=== PATIENT | male | born 1950 | race Caucasian/White ===

== ENCOUNTER 2017-01-01 21:41 | Inpatient (IN) ==
--- NOTE | 2017-01-01 22:15 | Emergency Department Note ---
Lois Luque Hilary, am scribing for, and in the presence of, Yoko Valdez DO 22: 02. IJosé Miguel Debra, DO, personally performed the services described in this documentation, ascribed by Brittany Abreu in my presence, and it is both accurate and complete 215 . Arrival - Arrival Chief Complaint: Shortness of Breath Stated Complaint: TRANSFER FROM [facility] FOR FLUID OVRLOAD/SOB Limitations: No Limitations Source: Patient, RN Notes Reviewed - History of Present Illness HPI Narrative: Pt is a 66 y/o white male brought into the ED via EMS as a transfer from [place] for c/o fluid overload and SOB. Pt denies any pain but confirms SOB. No other complaints or problems stated in the ED. Pt has a PMHx of Pancreatic CA. Onset (ago): hour(s) Consistency: constant Severity: moderate Severity scale (1-10): 4 Allergies/Adverse Reactions: Allergies Allergy/AdvReac Type Severity Reaction Status Date / Time No Known Allergies Allergy Verified 09/23/16 12:54 Home Medications: Home Medications Medication Instructions Recorded Confirmed Type Hydrocodone/Acetaminophen 2 each PO TID 09/23/16 09/23/16 History [Hydrocodon-Acetaminophn 10-325] Iron 25 mg PO DAILY 09/23/16 09/23/16 History Levothyroxine Tab [Synthroid Tab] 25 mcg PO DAILY@0700 09/23/16 09/23/16 History Omeprazole 20 mg PO DAILY 09/23/16 09/23/16 History Ondansetron Odt Tab [Zofran Odt] 4 mg PO Q4H PRN 09/23/16 09/23/16 History Pregabalin [Lyrica] 75 mg PO TID W/MEALS 09/23/16 09/23/16 History Sertraline HCl 100 mg PO DAILY 09/23/16 09/23/16 History Sulfameth/Trimeth 800-160 Tab 1 tablet PO BID 09/23/16 09/23/16 History [Bactrim DS Tab] diphenhydrAMINE HCl 25 mg PO BEDTIME PRN 09/23/16 09/23/16 History [diphenhydrAMINE Tab] Review of System - Review of System 12 point system: reviewed and no additional remarkable complaints except as stated - Review of System Constitutional: Present: other (fluid overload). Absent: fever Respiratory: Present: respiratory distress (SOB) Medical,Surgical,& Family Hx - Medical History Cardio: History of: CHF, Hypertension, Cardiovascular Problems (atrial fibrillation) Psychological: History of: Depression, Psychiatric Problems (PTSD) HEENT: History of: Eye Problem Endocrine: History of: Thyroid Disorder (takes sythroid) Respiratory: History of: Bronchitis, Intubation, Obstructive Sleep Apnea, Pneumonia Renal: History of: Renal Problems (urinary hetiancy) Genitourinary: History of: Prostate Problems Gastrointestinal: History of: GERD Other: History of: Cancer - Surgical History HEENT Surgeries: Surgical HX of: Eye Surgery Abdominal Surgeries: Surgical HX of: Abdominal Surgery (Spleen, Pancrease), Cholecystectomy, Colonoscopy, EGD - Family History Family History: Reports;: Family Cancer, Family Diabetes - Social History Smoking Status: Never smoker Exam Vital Signs: Vital Signs Temperature 96.5 F L 01/02/17 00:45 Pulse Rate 45 L 01/02/17 01:45 Respiratory Rate 18 01/02/17 01:30 Blood Pressure 54/33 01/02/17 01:30 O2 Sat by Pulse Oximetry 100 01/02/17 00:17 - General General appearance: alert, in no apparent distress - Head Head exam: Present: atraumatic, normocephalic - Eye Eye exam: Present: normal appearance, PERRL, EOMI - ENT ENT exam: Present: mucous membranes moist, TM's normal bilaterally. Absent: mucous membranes dry - Neck Neck exam: Present: full ROM, trachea midline. Absent: tenderness - Chest Chest inspection: Present: symmetric chest wall rise. Absent: tenderness - Respiratory Respiratory exam: Present: normal lung sounds bilaterally. Absent: respiratory distress - Cardiovascular Cardiovascular exam: Present: regular rate, normal rhythm, normal heart sounds. Absent: murmur, rubs, gallop - Abdominal Exam Abdominal exam: Present: soft, normal bowel sounds. Absent: distention, tenderness - Extremities Exam Extremities exam: Present: full ROM, pedal edema, other (bilateral edema LE and UE). Absent: tenderness - Back Exam Back exam: Present: full ROM. Absent: tenderness - Neurological Exam Neurological exam: Present: alert, oriented X3, CN II-XII intact. Absent: motor sensory deficit - Psychiatric Psychiatric exam: Present: normal affect, normal mood - Skin Skin exam: Present: warm, dry, intact, normal color. Absent: rash Results - Labs Lab Results: I have reviewed the patients labs Labs: Laboratory Tests 01/01/17 01/01/17 22:25 23:00 B-Natriuretic Peptide 64 Urine pH 5.0 Ur Specific [place] 1.012 Urine Urobilinogen < 2.0 H Urine RBC 1 Urine WBC 2 Hyaline Casts 4 Critical Care Time Critical Care Time: Yes Total Critical Care Time: 30 Disposition Disposition: Still a Patient Condition: Critical
[2017-01-01] MEDS ORDERED: DOPamine 800 MG/250 ML PREMIX IV ONE (22:27)
[2017-01-01] MEDS ORDERED: SODIUM CHLORIDE 0.9% 1,000 ML IV STA (22:28)
[2017-01-01] MEDS ORDERED: MEROPENEM 1,000 MG in SODIUM CHLORIDE 0.9% 100 ML IV STA (22:28)
[2017-01-01] MEDS ORDERED: DOPamine 800 MG/250 ML PREMIX IV SCH (22:30)
[2017-01-01] MEDS ORDERED: chlorproMAZINE INJ 50 MG in SODIUM CHLORIDE 0.9% 100 ML IV PRN (23:12)
[2017-01-01] MEDS ORDERED: diphenhydrAMINE CAP 25 MG CAPSULE PO PRN (23:12)
[2017-01-01] MEDS ORDERED: ONDANSETRON 4 MG/2 ML VIAL IV PRN (23:12)
[2017-01-01] MEDS ORDERED: chlorproMAZINE INJ 25 MG in SODIUM CHLORIDE 0.9% 100 ML IV PRN (23:12)
[2017-01-01] MEDS ORDERED: BENZTROPINE 2 MG/2 ML AMP IV PRN (23:12)
[2017-01-01] MEDS ORDERED: MYLANTA/LIDO VISC 2:1 300 ML BOTTLE SWISH/SWAL PRN (23:12)
[2017-01-01] MEDS ORDERED: PROMETHAZINE INJ 25 MG in SODIUM CHLORIDE 0.9% 50 ML IV PRN (23:12)
[2017-01-01] MEDS ORDERED: SODIUM CHLORIDE 0.9% 1,000 ML IV SCH (23:30)
[2017-01-01 23:40] LABS: Apearance,Urine Slightly Hazy (Clear); Bacteria,Urine Occasional /HPF (Few); Bilirubin,Urine Negative (Negative); Blood, Urine Negative (Negative); Glucose,Urine (UA) Negative (Negative); Hyaline Casts,Urine 4 /LPF (0-3); Ketones,Urine Negative (Negative); Mucus,Urine Occasional /LPF (Occasional); Nitrite,Urine Negative (Negative); Protein,Urine Negative; RBC,Urine 1 /HPF (0-4); Squamous Epithelial Cell,Urine Occasional /HPF (0-10); Urine Color Yellow (Yellow); Urine Specific Gravity 1.012 (1.001-1.035); Urine Urobilinogen < 2.0 EU/DL (0.2-1.0); WBC,Urine 2 /HPF (0-6)
[2017-01-01] MEDS ORDERED: VECURONIUM 10 MG VIAL IV ONE ×2 (23:40→23:42)
[2017-01-01] MEDS ORDERED: SUCCINYLCHOLINE 200 MG/10 ML VIAL ONE (23:42)
[2017-01-01] MEDS ORDERED: ETOMIDATE 20 MG/10 ML VIAL IV ONE (23:42)
[2017-01-02] MEDS ORDERED: NOREPINEPHRINE 4 MG/4 ML VIAL IV ONE (00:43)
[2017-01-02] MEDS ORDERED: HYDROCORTISONE 100 MG VIAL IV ONE (00:46)
[2017-01-02 00:50] LABS: ABG Base Excess -8.5 MMOL/L (-2.5-2.5); ABG HCO3 17.4 MMOL/L (20-26); ABG Oxygen Saturation 88.9 % (95-100); ABG PO2 70.5 MM HG (80-95); ABG TCO2 18.7 MMOL/L (23-27); Allen Test Positive; Pt O2 Delivery Device Ventilator
[2017-01-02 00:51] LABS: ABG PH 7.189 (7.35-7.45)
[2017-01-02] MEDS ORDERED: MEROPENEM 1,000 MG in SODIUM CHLORIDE 0.9% 100 ML IV SCH (01:00)
[2017-01-02] MEDS ORDERED: NOREPINEPHRINE 8 MG in SODIUM CHLORIDE 0.9% 242 ML IV SCH (01:00)
[2017-01-02] MEDS ORDERED: SODIUM BICARBONATE 50 MEQ/50 ML SYRINGE IV ONE (01:14)
[2017-01-02 01:53] VITALS: BP 54/33
--- NOTE | 2017-01-02 09:07 | XRay Report ---
Portable chest Date: 01/01/2017 Clinical history: Status post intubation Comparison: 01/01/2017 Technique: Portable AP sitting chest Findings: The heart is enlarged with progressive parenchymal findings and larger pleural effusions. Stable left subclavian venous access catheter. The endotracheal tube is in satisfactory position. Degenerative changes with postoperative findings in the left shoulder. Impression: The endotracheal tube is in satisfactory position. Progressive moderate CHF/bilateral pneumonia. Progressive atelectasis with enlarging small to moderate pleural effusions. PROCEDURE INTERPRETED AT [facility] DEPARTMENT OF RADIOLOGY Final Report Signed by: Dr. Deborah Whitney
--- NOTE | 2017-01-02 10:46 | Oncology History&Physical ---
History of Present Illness Chief complaint: Shortness of breath History of present illness: Mr. Benito is a 66 year old male With a past medical history of pancreatic cancer. He is followed by Dr. Latrell Ngo. History was obtained through telephone conversations with the emergency room physician. This patient was transferred from an outside facility with shortness of breath. There appeared to be bilateral pneumonia. The patient's cardiac BNP was within normal limits arguing against congestive heart failure. He was intubated in the ER here at [facility]. Pertinent positives include severe hypotension unresponsive to 2 vasopressors and decreased mental status. The patient had evidence of metabolic acidosis with severely elevated lactic acid based on review of outside hospital records. The patient was admitted to the ICU but did not survive more than 2 hours. I was in contact with the ICU nurses during the night. No other physical examination details are available as the patient before hospital rounds were made. The patient's was informed of the gravity of the situation by nursing staff and a DO NOT RESUSCITATE order was instituted. See chart for further orders and documentation. Home Medications Medication Instructions Recorded Confirmed Type Hydrocodone/Acetaminophen 2 each PO TID 09/23/16 09/23/16 History [Hydrocodon-Acetaminophn 10-325] Iron 25 mg PO DAILY 09/23/16 09/23/16 History Levothyroxine Tab [Synthroid Tab] 25 mcg PO DAILY@0700 09/23/16 09/23/16 History Omeprazole 20 mg PO DAILY 09/23/16 09/23/16 History Ondansetron Odt Tab [Zofran Odt] 4 mg PO Q4H PRN 09/23/16 09/23/16 History Pregabalin [Lyrica] 75 mg PO TID W/MEALS 09/23/16 09/23/16 History Sertraline HCl 100 mg PO DAILY 09/23/16 09/23/16 History Sulfameth/Trimeth 800-160 Tab 1 tablet PO BID 09/23/16 09/23/16 History [Bactrim DS Tab] diphenhydrAMINE HCl 25 mg PO BEDTIME PRN 09/23/16 09/23/16 History [diphenhydrAMINE Tab] Allergies Allergy/AdvReac Type Severity Reaction Status Date / Time No Known Allergies Allergy Verified 09/23/16 12:54 Medical,Surgical,& Family Hx - Medical History Cardio: History of: CHF, Hypertension, Cardiovascular Problems (atrial fibrillation) Psychological: History of: Depression, Psychiatric Problems (PTSD) HEENT: History of: Eye Problem Endocrine: History of: Thyroid Disorder (takes sythroid) Respiratory: History of: Bronchitis, Intubation, Obstructive Sleep Apnea, Pneumonia Renal: History of: Renal Problems (urinary hetiancy) Genitourinary: History of: Prostate Problems Gastrointestinal: History of: GERD Other: History of: Cancer - Surgical History HEENT Surgeries: Surgical HX of: Eye Surgery Abdominal Surgeries: Surgical HX of: Abdominal Surgery (Spleen, Pancrease), Cholecystectomy, Colonoscopy, EGD - Family History Family History: Reports;: Family Cancer, Family Diabetes - Social History Smoking Status: Never smoker Frequency of Alcohol Use: None Type of Drug Use: None Exam - Constitutional Vitals: Period Temp Pulse Resp BP Sys/Narayanan Pulse Ox Last 24 Hr 96.5 F-98.1 F 45-129 12-32 49-68/22-33 97-100
--- NOTE | 2017-01-03 13:21 | Physician Query Form ---
CLICK EDIT DOCUMENT TO SELECT QUERY ANSWER --> OK --> SIGN Catina Soto RN, CCDS Certified Clinical Hot End Operator W) [phone] (f) [phone] [email or web address]: Make your selection(s) from the choices in EACH section by typing an "x" and enter comments in the comment section. Please use your independent medical judgment in providing your response. This request does not imply that any particular answer is desired or expected. CLINICAL INDICATORS: (Providers should not edit this section) The medical record indicates that the patient was admitted with Pneumonia, Lactic Acid 11.5#, BP 61/31 in the ER (severe hypotension unresponsive to 2 vasopressors), Respirations of 32 (placed on the Vent), ABG's pH 7.189#, pC02 52.0#, p02 70.5 # AND the patient was placed on Norepinephrine / Dopamine. Please clarify which, if any, of the following is the etiology of the above symptoms and treatment rendered: ( ) Sepsis due to a localized infection, please specify infection: ( ) Severe Sepsis (sepsis with acute organ failure) - Please specify type acute organ failure: ( x) Septic Shock (severe sepsis with hypotension) ( ) SIRS of noninfectious origin ( ) Sepsis due to a device, implant or graft, please specify: ( ) Localized infection only, without systemic illness, please specify infection : ( ) Bacteremia (abnormal lab finding only, does not indicate systemic illness) ( ) Other condition, please specify: ( ) Clinically unable to determine Criteria for Sepsis (SIRS due to an infection) should be based on 2 or more of the following being present: Temperature > 101F or < 96.8F WBC > 12,000 or < 4,000, or > 10% bands Tachycardia HR > 90 beats/minute Tachypnea RR > 20 breaths/minute or PaCO2 > 32mmHg Lactate level > 2.0 mmol/L (>4 is equivalent to severe sepsis) Altered Mental Status Mottling of skin or prolonged capillary refill Non-diabetic hyperglycemia (blood sugar >120 mg/dl) Other evidence of acute organ failure associated with sepsis ( severe sepsis) COMMENTS: PLEASE ALSO DOCUMENT RESPONSE IN PROGRESS NOTES AND/OR DISCHARGE SUMMARY Use of terms such as suspected, likely, or probable (associated with a specific diagnosis that is being evaluated, monitored, or treated as if it exists) are acceptable and can be restated in the discharge summary if not ruled out. MTDD
--- NOTE | 2017-01-03 13:22 | Physician Query Form ---
CLICK EDIT DOCUMENT TO SELECT QUERY ANSWER --> OK --> SIGN Catina Soto RN, CCDS Certified Clinical Rn Training W) [phone] (f) [phone] [email or web address]: Make your selection(s) from the choices in EACH section by typing an "x" and enter comments in the comment section. Please use your independent medical judgment in providing your response. This request does not imply that any particular answer is desired or expected. CLINICAL INDICATORS: (Providers should not edit this section) The medical record indicates that that patient was admitted with Pneumonia, Respirations of 32#, ABG's pH 7.189#, pC02 52.0#, p02 70.5 # and the patient was placed on the ventilator. If possible, please further clarify the type and acuity of respiratory diagnosis : ACUITY: ( x) Acute ( ) Chronic ( ) Acute on Chronic TYPE: ( ) Respiratory failure with hypoxia (x ) Respiratory failure with hypercapnia ( ) Respiratory Arrest ( ) Postprocedural/postoperative respiratory failure ( ) Respiratory Insufficiency ( ) ARDS (Adult/Acute Respiratory Distress Syndrome) ( ) Other, please specify: ( ) Clinically unable to determine Recognized criteria for respiratory failure PH <7.35 or >7.45 PO2 <60 PCO2 >50 RR >24 O2 Sat <90% on RA or <95% on O2 Use of accessory muscles Unable to speak in full sentences Intubation is not required COMMENTS: PLEASE ALSO DOCUMENT RESPONSE IN PROGRESS NOTES AND/OR DISCHARGE SUMMARY Use of terms such as suspected, likely, or probable (associated with a specific diagnosis that is being evaluated, monitored, or treated as if it exists) are acceptable and can be restated in the discharge summary if not ruled out. MTDD
== END 2017-01-02 01:48 | disposition expired | DRG 871 ==
LOC: EDUNIT# → EDBD → N.ED 21:41 → N.EDINP 23:12 → N.ICU 23:55
PROVIDERS: ADMIT Specialist; ATTEND Specialist